=== PATIENT | female | born 1995 | race Caucasian/White ===

== ENCOUNTER 2021-05-26 20:08 | Emergency (ER) | payer SELFPAY ==
[~2021-05-26 20:08] MED LIST: DEPO-PROVE150 MG/1 M IM
[2021-05-26 20:59] LABS: HEMOGLOBIN 13.9 gm/dl (12.3-15.3); RED BLOOD COUNT 4.23 M/UL (4.00-5.10)
[2021-05-26 21:22] LABS: BUN/CREATININE RATIO 16 (0-10)
== END 2021-05-26 22:17 | disposition home or self-care (01) ==
LOC: ER1 20:08
PROVIDERS: Nurse Practitioner
DX: N20.0 Calculus of kidney (principal); Z87.442 Personal history of urinary calculi
CPT/HCPCS: 80048; 81001; 85025; 96374; 96375; 99284; J1885; J2405